=== PATIENT | female | born 1945 ===

== ENCOUNTER 2016-06-12 22:32 | Emergency (ER) | payer MEDICARE, OTHER ==
[2016-06-12 22:45] VITALS: BP 164/83; RESP 16; TEMP 98.4; BMI 25.4
--- NOTE | 2016-06-12 23:08 | ED PDOC ---
Arrival/HPI - General Chief Complaint: Lower Extremity Problem/Injury Time Seen by Provider: 06/12/16 22:36 Historian: Patient, Family - History of Present Illness Narrative History of Present Illness (Text): 06/12/16 23:03 Latoya Medina is a 71 year old female, whose past medical history includes DVT, PE , hyperlipidema, GERD, open appendectomy, cectomy, and terminal ileum resection , who presents to the ED accompanied by relative complaining of left thigh pain. 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 Patient denies any weakness/numbness/tingling in the extremity, recent trauma/injury, fever, chills, chest pain, shortness of breath, nausea, vomiting, diarrhea, urinary symptoms, back pain, neck pain, headache, dizziness , or any other complaints. Time/Duration: Other (today) Symptom Onset: Gradual Symptom Course: Unchanged Activities at Onset: Rest, Light Context: Home Past Medical History - Provider Review Nursing Documentation Reviewed: Yes - Infectious Disease Hx of Infectious Diseases: None - Tetanus Immunization Tetanus Immunization: Unknown - Cardiac Hx Cardiac Disorders: Yes - Pulmonary Hx Respiratory Disorders: No - Neurological Hx Neurological Disorder: No - HEENT Hx HEENT Disorder: No - Renal Hx Renal Disorder: No - Endocrine/Metabolic Hx Endocrine Disorders: No - Hematological/Oncological Hx Blood Disorders: No - Integumentary Hx Dermatological Disorder: No - Musculoskeletal/Rheumatological Hx Musculoskeletal Disorders: Yes Hx Arthritis: Yes Hx Osteoporosis: Yes - Gastrointestinal Hx Gastrointestinal Disorders: Yes - Genitourinary/Gynecological Hx Genitourinary Disorders: No - Psychiatric Hx Psychophysiologic Disorder: No Hx Substance Use: No - Surgical History Hx Appendectomy: Yes (colon resection mar 12 2016) Other/Comment: excision of vaginal cyst, excision r breast benign cyst, c section x2 unspecified abd sx, r breast bx, laparoscopic ap today 03/12/16 - Anesthesia Hx Anesthesia: Yes Hx Anesthesia Reactions: No Hx Malignant Hyperthermia: No - Suicidal Assessment Feels Threatened In Home Enviroment: No Family/Social History - Physician Review Nursing Documentation Reviewed: Yes Family/Social History: No Known Family HX Smoking Status: Never Smoked Hx Alcohol Use: Yes (at parties) Hx Substance Use: No Hx Substance Use Treatment: No Allergies/Home Meds Allergies/Adverse Reactions: Allergies No Known Allergies Allergy (Verified 03/30/16 17:52) Home Medications: Home Meds Medication Instructions Recorded Confirmed Chrom Peyton/Brindal Jenkins [Garcinia 1 each PO DAILY 06/12/16 06/12/16 Cambogia Tablet] Diclofenac Sodium [Voltaren] 100 gm TP PRN PRN 06/12/16 06/12/16 Ergocalciferol [Drisdol] 50,000 iu PO QWK 06/12/16 06/12/16 Furosemide [Lasix] 20 mg PO DAILY 06/12/16 06/12/16 Meloxicam [Mobic] 15 mg PO DAILY PRN 06/12/16 06/12/16 Ondansetron ODT [Zofran ODT] 4 mg PO Q6H PRN 06/12/16 06/12/16 Pravastatin Sodium 40 mg PO HS 06/12/16 06/12/16 Warfarin [Coumadin] 2 mg PO DAILY 06/12/16 06/12/16 Review of Systems - Physician Review All systems were reviewed & negative as marked: Yes - Review of Systems Constitutional: Normal. absent: Fevers Eyes: Normal ENT: Normal Respiratory: Normal. absent: SOB, Cough Cardiovascular: Normal. absent: Chest Pain Gastrointestinal: Normal. absent: Abdominal Pain, Diarrhea, Nausea, Vomiting Genitourinary Female: Normal. absent: Dysuria, Frequency, Hematuria, Urine Output Changes Musculoskeletal: Myalgias (+left thigh pain). absent: Back Pain, Neck Pain Skin: Normal. absent: Rash Neurological: Normal. absent: Headache, Dizziness Endocrine: Normal Hemo/Lymphatic: Normal Psychiatric: Normal Physical Exam Vital Signs Reviewed: Yes Vital Signs Temp Pulse Resp BP Pulse Ox 06/12/16 22:43 98.4 F 79 16 164/83 H 97 Temperature: Afebrile Blood Pressure: Normal Pulse: Regular Respiratory Rate: Normal Appearance: Positive for: Well-Appearing, Non-Toxic, Comfortable Pain Distress: None Mental Status: Positive for: Alert and Oriented X 3 - Systems Exam Head: Present: Atraumatic, Normocephalic Pupils: Present: PERRL Extroacular Muscles: Present: EOMI Conjunctiva: Present: Normal Mouth: Present: Moist Mucous Membranes Neck: Present: Normal Range of Motion Respiratory/Chest: Present: Clear to Auscultation, Good Air Exchange. No: Respiratory Distress, Accessory Muscle Use Cardiovascular: Present: Regular Rate and Rhythm, Normal S1, S2. No: Murmurs Abdomen: Present: Normal Bowel Sounds. No: Tenderness, Distention, Peritoneal Signs Back: Present: Normal Inspection Upper Extremity: Present: Normal Inspection. No: Cyanosis, Edema Lower Extremity: Present: Normal Inspection, NORMAL PULSES, Normal ROM, Neurovascularly Intact. No: Edema, Cyanosis, Erythema, Deformity, Temperature Abnormalties Neurological: Present: GCS=15, CN II-XII Intact, Speech Normal Skin: Present: Warm, Dry, Normal Color. No: Rashes Psychiatric: Present: Alert, Oriented x 3, Normal Insight, Normal Concentration Medical Decision Making ED Course and Treatment: 06/12/16 23:03 Impression: 71 year old female complaining of pain to left inner thigh with some bruising since this afternoon. Differential Diagnosis include but are not limited to: phlebitis vs. DVT vs. muscular strain Plan: -- US Duplex Lower Extremities -- Labs -- Reassess and disposition Prior Visits: Notes and results from previous visits were reviewed. Progress Notes: 06/13/16 00:10 Reviewed labs, within normal limits Reviewed sono, US Duplex Lower Extremities shows no evidence of DVT. 06/13/16 00:45 On re-evaluation, the patient feels better and is in no acute distress. I have discussed the results and plan with the patient, who expresses understanding. Patient in agreement with plan to discharged home. Patient is stable for discharge. Patient was instructed to follow up with physician/clinic in 1-2 days or return if symptoms worsen or new concerning symptoms arise. Re-evaluation Time: 00:49 Reassessment Condition: Re-examined, Improved - Lab Interpretations Lab Results: 06/12/16 23:05 06/12/16 23:05 Lab Results 06/12/16 23:05: WBC 7.8, RBC 4.80, Hgb 14.4, Hct 42.0, MCV 87.5, MCH 30.0, MCHC 34.3, RDW 13.3, Plt Count 244, MPV 10.4, Gran % 59.6, Lymph % (Auto) 30.6, Gulf % (Auto) 7.1 H, Eos % (Auto) 2.6, Baso % (Auto) 0.1, Gran # 4.64, Lymph # 2.4, Gulf # 0.6, Eos # 0.2, Baso # 0.01, PT 29.4 H, INR 2.72 H, APTT 42.6 H, Sodium 140, Potassium 3.8, Chloride 104, Carbon Dioxide 28, Anion Gap 12, BUN 18, Creatinine 0.7, Est GFR ( Amer) > 60, Est GFR (Non-Af Amer) > 60, Random Glucose 96, Calcium 9.7, Total Bilirubin 0.5, AST 28, ALT 22, Alkaline Phosphatase 78, Total Protein 8.1, Albumin 4.3, Globulin 3.8, Albumin/Globulin Ratio 1.1 I have reviewed the lab results: Yes - RAD Interpretation Radiology Orders: 06/12/16 22:56 DUPLEX LOWER EXTRM VEIN LEFT [US] Stat - Medication Orders Current Medication Orders: Discontinued Medications Oxycodone/Acetaminophen (Percocet 5/325 Mg Tab) 1 tab PO STAT STA Stop: 06/12/16 23:40 Last Admin: 06/13/16 00:21 Dose: 1 TAB - Scribe Statement The provider has reviewed the documentation as recorded by the Deepali Gary Provider Attestation: All medical record entries made by the Deepali were at my direction and personally dictated by me. I have reviewed the chart and agree that the record accurately reflects my personal performance of the history, physical exam, medical decision making, and the department course for this patient. I have also personally directed, reviewed, and agree with the discharge instructions and disposition. Disposition/Present on Arrival - Present on Arrival Any Indicators Present on Arrival: No History of DVT/PE: No History of Uncontrolled Diabetes: No Urinary Catheter: No History of Decub. Ulcer: No History Surgical Site Infection Following: None - Disposition Have Diagnosis and Disposition been Completed?: Yes Diagnosis: Superficial phlebitis of left leg Disposition: HOME/ ROUTINE Disposition Time: 00:46 Patient Problems: Current Active Problems Problem Status Diagnosed Superficial phlebitis of left leg Acute Discharge Instructions (ExitCare): Superficial Thrombophlebitis (ED) Prescriptions: Tramadol HCl [Ultram] 50 mg PO QID #12 tab Referrals: Jessee Reyes MD [Primary Care Provider] - Follow up with primary
[2016-06-12 23:20] LABS: ADD MANUAL DIFF? NO
[2016-06-12 23:29] LABS: BASO # 0.01 K/mm3 (0.0-2.0); BASO % 0.1 % (0.0-3.0); EOS # 0.2 (0.0-0.7); EOS % 2.6 % (1.5-5.0); GRAN # 4.64 (1.4-6.5); GRAN % 59.6 % (50.0-68.0); LYMPH # 2.4 (1.2-3.4); LYMPH % 30.6 % (22.0-35.0); MEAN CELL VOLUME 87.5 fL (80.0-105.0); MEAN CORPUSCULAR HGB CONC 34.3 g/dl (31.0-37.0); MEAN PLATELET VOLUME 10.4 fl (7.0-11.0); MONO # 0.6 (0.1-0.6); MONO % 7.1 % (1.0-6.0); PLATELET COUNT 244 10^3/uL (120.0-450.0); RED CELL DISTRIBUTION WIDTH 13.3 % (11.5-14.5); WHITE BLOOD COUNT 7.8 10^3/ul (4.5-11.0)
[2016-06-12 23:31] LABS: ALB/GLOB RATIO 1.1 (1.1-1.8); ALKALINE PHOSPHATASE 78 U/L (38-133); ALT/SGPT 22 U/L (7-56); AST/SGOT 28 U/L (15-39); BILIRUBIN,TOTAL 0.5 mg/dL (0.2-1.3); BLOOD UREA NITROGEN 18 mg/dL (7-21); CALCIUM 9.7 mg/dL (8.4-10.5); CARBON DIOXIDE 28 mmol/L (21-33); CHLORIDE 104 mmol/L (98-107); GFR AFRICAN-AMERICAN > 60; GLUCOSE,RANDOM 96 mg/dL (70-110); POTASSIUM 3.8 mmol/L (3.6-5.0); SODIUM 140 mmol/L (132-148); TOTAL PROTEIN 8.1 g/dL (5.8-8.3)
[2016-06-12] MEDS ORDERED: Oxycodone/Acetaminophen 5/325 mg Tab PO STA (23:39)
[2016-06-12 23:41] LABS: INR 2.72 (0.93-1.08); PARTIAL THROMBOPLASTIN TIME 42.6 Seconds (23.7-30.8)
[2016-06-13 00:52] VITALS: PULSE 80
[2016-06-13 00:53] VITALS: O2SAT 98
--- NOTE | 2016-06-13 11:43 | US ---
PROCEDURE: Left lower extremity venous US HISTORY: Leg pain and swelling. Evaluate for DVT. PHYSICIAN(S): Daniel Rivera MD. TECHNIQUE: Duplex sonography and color-flow Doppler with graded compression were used to evaluate the deep venous system of the left lower extremity. FINDINGS: The visualized deep venous system of the left lower extremity is sonographically normal and compressible. Normal wave forms and augmentation are seen. There is no sonographic evidence for deep venous thrombosis in the visualized segments of the left lower extremity. IMPRESSION: 1. No sonographic evidence for deep venous thrombosis in the visualized segments of the left lower extremity.
== END 2016-06-13 00:53 | disposition home or self-care (01) ==
LOC: ED 22:32
DX: I80.02 Phlebitis and thrombophlebitis of superficial vessels of left lower extremity (principal)

== ENCOUNTER 2018-06-23 10:23 | Outpatient (CLI) | payer MEDICARE, SELFPAY | END 2018-06-23 10:24 | disposition home or self-care (01) | LOC: RAD 10:23 ==

== ENCOUNTER 2018-06-27 14:04 | Outpatient (CLI) | payer MEDICARE, SELFPAY | END 2018-06-27 14:05 | disposition home or self-care (01) | LOC: LAB 14:04 ==

== ENCOUNTER 2018-06-30 10:13 | Outpatient (CLI) | payer MEDICARE, SELFPAY | END 2018-06-30 10:14 | disposition home or self-care (01) | LOC: RAD 10:13 ==

== ENCOUNTER 2018-07-31 10:20 | Outpatient (CLI) | payer MEDICARE, SELFPAY | END 2018-07-31 10:21 | disposition home or self-care (01) | LOC: LAB 10:20 ==

== ENCOUNTER 2018-08-10 10:20 | Outpatient (CLI) | payer MEDICARE, SELFPAY | END 2018-08-10 10:21 | disposition home or self-care (01) | LOC: RAD 10:20 ==

== ENCOUNTER 2018-08-25 13:11 | Day surgery (SDC) | payer MEDICARE, SELFPAY ==
[2018-08-25 13:43] VITALS: BMI 25.4
[2018-08-25] MEDS ORDERED: Sodium Chloride 0.9% 1,000 ML IV SCH (13:45)
[2018-08-25] MEDS ORDERED: Propofol 10 mg/ml Inj (20 ML) ONE (16:19)
[2018-08-25 17:28] VITALS: BP 123/69; PULSE 79; RESP 16; TEMP 98.5; O2SAT 100
== END 2018-08-25 18:32 | disposition home or self-care (01) ==
LOC: ENDO 13:11
PROVIDERS: ATTEND Internal Medicine Gastroenterology
DX: K31.7 Polyp of stomach and duodenum (principal); K29.50 Unspecified chronic gastritis without bleeding; K57.10 Diverticulosis of small intestine without perforation or abscess without bleeding; K44.9 Diaphragmatic hernia without obstruction or gangrene; K57.30 Diverticulosis of large intestine without perforation or abscess without bleeding; K64.8 Other hemorrhoids; K91.2 Postsurgical malabsorption, not elsewhere classified; Z98.0 Intestinal bypass and anastomosis status; Y83.2 Surgical operation with anastomosis, bypass or graft as the cause of abnormal reaction of the patient, or of later complication, without mention of misadventure at the time of the procedure
CPT/HCPCS: 43239; 45378; 88305; 88312; 88342; J2001; J2704; J7030; J7040